=== PATIENT | female | born 1975 | race Two or more races ===

== ENCOUNTER 2019-07-03 01:40 | Emergency (ER) | payer OTHER ==
[~2019-07-03] VITALS: Ht 165.1 cm; Wt 72.1 kg
[~2019-07-03 01:40] MED LIST: SYNTHROID88 MCG
[2019-07-04] MEDS ORDERED: BENADRYL50 MG (10:10)
[2019-07-04] MEDS ORDERED: ZANTAC150 M3 (10:11)
[2019-07-04] MEDS ORDERED: MEDROL4 MG (10:11)
[2019-07-04] MEDS ORDERED: XYZAL5 MG PO (10:57)
== END 2019-07-03 04:05 | disposition home or self-care (01) ==
LOC: ER 01:40
DX: L50.8 Other urticaria (principal)

== ENCOUNTER 2019-07-04 09:57 | Emergency (ER) | payer OTHER ==
[~2019-07-04] VITALS: Ht 165.1 cm; Wt 72.1 kg
[2019-07-04] MEDS ORDERED: BENADRYL50 MG (10:10)
[2019-07-04] MEDS ORDERED: MEDROL4 MG (10:11)
[2019-07-04] MEDS ORDERED: ZANTAC150 M3 (10:11)
[2019-07-04] MEDS ORDERED: XYZAL5 MG PO (10:57)
== END 2019-07-04 11:28 | disposition home or self-care (01) ==
LOC: ER 09:57
DX: R21 Rash and other nonspecific skin eruption (principal)

== ENCOUNTER 2019-09-23 07:19 | Outpatient (CLI) | payer OTHER ==
[~2019-09-23 07:19] MED LIST changes: +BENADRYL50 MG; +MEDROL4 MG; +XYZAL5 MG PO; +ZANTAC150 M3
[2019-10-16] MEDS ORDERED: ORENCIA CL125 MG/1 M (03:42)
[2019-10-16] MEDS ORDERED: KEFLEX500 MG PO (05:14)
[2019-10-16] MEDS ORDERED: KETO10TA2 PO (05:17)
== END 2019-09-23 07:22 | disposition home or self-care (01) ==
LOC: SONOGRAMA 07:19
DX: E04.1 Nontoxic single thyroid nodule (principal)

== ENCOUNTER → 2019-10-16 | Emergency (ER) | payer OTHER ==
[~2019-10-16] VITALS: Ht 165.1 cm; Wt 72.1 kg
[~2019-10-16] MED LIST changes: +KEFLEX500 MG PO; +KETO10TA2 PO; +ORENCIA CL125 MG/1 M
== END | disposition home or self-care (01) ==
LOC: ER 03:29
DX: H60.8X1 Other otitis externa, right ear (principal)

== ENCOUNTER 2024-09-06 04:27 | Emergency (ER) | payer OTHER ==
[~2024-09-06] VITALS: Ht 172.7 cm; Wt 81.6 kg
[2024-09-06] MEDS ORDERED: FAMOTIDINE/PF 20 MG/2 ML VIAL IV PUSH STA (06:10)
[2024-09-06] MEDS ORDERED: ONDANSETRON HCL 2 MG/ML VIAL IV STA (06:10)
[2024-09-06] MEDS ORDERED: MAG HYDROX/ALUMINUM HYD/SIMETH 30 ML BLIST.PACK PO STA (06:10)
[2024-09-06] MEDS ORDERED: PROTONIX40 MG PO (08:11)
[2024-09-06] MEDS ORDERED: PEPCID40 MG PO (08:11)
== END 2024-09-06 08:16 ==
LOC: ER 04:29
DX: R10.13 Epigastric pain (principal); E03.8 Other specified hypothyroidism; Z88.8 Allergy status to other drugs, medicaments and biological substances
CPT/HCPCS: 93005; 96365; 99283; J2405; J3490

== ENCOUNTER 2024-12-01 01:08 | Emergency (ER) | payer OTHER ==
[~2024-12-01] VITALS: Ht 157.5 cm; Wt 72.6 kg
[~2024-12-01 01:08] MED LIST changes: +PEPCID40 MG PO; +PROTONIX40 MG PO
[2024-12-01] MEDS ORDERED: hydrOXYzine PAMOATE 50 MG CAPSULE PO STA (02:23)
[2024-12-01] MEDS ORDERED: hydrOXYzine PAMOATE 50 MG CAPSULE PO ONE (02:31)
[2024-12-01 02:35] LABS: MEAN CELL VOLUME 86.5 fL (80.00-100.00); PLATELET COUNT 351 K/uL (150-450); RED BLOOD COUNT 3.69 M/uL (4.00-6.00); RED CELL DISTRIBUTION WIDTH 15.1 % (11.5-14.5)
[2024-12-01 03:00] LABS: PARTIAL THROMBOPLASTIN TIME 25.5 SECONDS (22.0-34.0); PROTHROMBIN TIME 10.9 SECONDS (9.0-11.5)
[2024-12-01 03:07] LABS: BILIRUBIN TOTAL 0.29 mg/dL (0.3-1.2); CALCIUM 9.2 mg/dL (8.5-10.1); CREATININE SERUM 0.84 mg/dL (0.55-1.02); GFR 72.36; GLOBULINA 4.1 G/DL (2.4-3.5); POTASSIUM 3.6 mEq/L (3.5-5.1); TOTAL PROTEIN 8.1 gm/dL (6.4-8.2)
[2024-12-01 03:09] LABS: proBNP 40 pg/mL (0-51.9)
[2024-12-01 03:14] LABS: HEMOGLOBIN 10.6 g/dL (12.0-15.00); MEAN CORPUSCULAR HEMOGLOBIN 28.7 pg (27.00-32.0)
[2024-12-01 03:16] LABS: TROPONIN I hs < 3.0 PG/ML (42.2-82.3)
[2024-12-01 07:10] VITALS: BP 108/65; O2SAT 97
[2024-12-01 07:25] LABS: PH,URINE 7.5; URINE BILIRRUBIN NEGATIVE (NEGATIVE); URINE BLOOD LARGE; URINE GLUCOSE NEGATIVE (NEGATIVE); URINE KETONE NEGATIVE (NEGATIVE); URINE LEUKOCYTE NEGATIVE; URINE NITRATE NEGATIVE; URINE UROBILINOGEN 0.2 E.U./dl
[2024-12-01 08:10] LABS: URINE APPEARANCE SL CLOUDY; URINE COLOR YELLOW; URINE PROTEIN 100 (NEGATIVE)
[2024-12-01 08:11] LABS: URINE BACTERIA MANY; URINE CRYSTALS FEW /HPF; URINE RBC 19-25 /HPF
== END 2024-12-01 08:02 ==
LOC: ER 01:11
PROVIDERS: General Practice
DX: R00.2 Palpitations (principal); D64.9 Anemia, unspecified; Z88.8 Allergy status to other drugs, medicaments and biological substances